=== PATIENT | female | born 1945 | race American Indian/Alaskan Native ===

== ENCOUNTER 2017-06-06 17:35 | Emergency (ER) | payer MEDICARE ==
[2017-06-06 19:11] LABS: Basophils # (Auto) 0.1 K/mm3 (0.0-0.1); Eosinophils % (Auto) 0.7 % (0.0-4.3); Hematocrit 31.7 % (30.3-42.9); Hemoglobin 10.6 gm/dl (10.1-14.3); Lymphocytes # (Auto) 0.8 K/mm3 (1.2-5.4); Lymphocytes % (Auto) 16.3 % (13.4-35.0); Mean Corpuscular HGB Conc 33 % (30-34); Mean Corpuscular Hemoglobin 29 pg (28-32); Mean Corpuscular Volume 86 fl (79-97); Monocytes # (Auto) 0.4 K/mm3 (0.0-0.8); Monocytes % (Auto) 7.6 % (0.0-7.3); Platelet Count 209 K/mm3 (140-440); Red Blood Count 3.71 M/mm3 (3.65-5.03); Red Cell Distribution Width 13.3 % (13.2-15.2)
[2017-06-06 19:21] LABS: INR 0.96 (0.87-1.13); Partial Thromboplastin Time 29.1 Sec. (24.2-36.6)
--- NOTE | 2017-06-06 19:27 | Emergency Department Report ---
ED Female HPI - General Chief complaint: Vaginal Bleeding Stated complaint: VAGINAL HEMORRHAGE Time Seen by Provider: 06/06/17 18:32 Source: EMS Mode of arrival: Stretcher Limitations: No Limitations - History of Present Illness Initial comments: 72 yo female with a past medical history of osteoarthritis presents to the hospital with complaints that she be started one hour prior to arrival. Patient went to the bathroom to have a bowel movement. She has some suprapubic pressure. After straining she noticed a gush of blood from her vagina with clots. Patient denies rectal bleeding. No complaints of pain at this time. Patient has been postmenopausal since the age of 51 and has not seen a VIRTUAL OFFICE ASSISTANT since 1982. Patient presents with elevated blood pressure and states that it increases when she is upset or nervous she denies a history of hypertension. Patient takes multivitamins and Aleve for her arthritis. Pt states she eats multiple bananas today - Related Data Previous Rx's Medication Instructions Recorded Last Taken Type Ferrous Sulfate 325 mg PO DAILY #30 tablet. 06/07/17 Unknown Rx Ibuprofen [Motrin] 800 mg PO Q8HR PRN #30 tablet 06/07/17 Unknown Rx Metformin HCl 500 mg PO BID #60 tablet 06/07/17 Unknown Rx Allergies Allergy/AdvReac Type Severity Reaction Status Date / Time No Known Allergies Allergy Unverified 06/06/17 18:35 ED Review of Systems ROS: Stated complaint: VAGINAL HEMORRHAGE Other details as noted in HPI Comment: All other systems reviewed and negative Other: Constitutional: No fevers chills Eyes: No eye pain visual changes ENT: No ear pain or throat pain Neck: Denies pain Respiratory: Denies cough wheezing shortness of breath Cardiovascular: Denies chest pain, palpitations, syncope GI: Denies abdominal pain, nausea, vomiting, diarrhea : Denies dysuria Musculoskeletal: Denies back pain Skin: Denies rash, lesions, erythema Neurologic: Denies headache, numbness, weakness Psychiatric: Denies suicidal ideation, hallucinations ED Past Medical Hx - Past Medical History Hx Arthritis: Yes (osteoarthritis) - Social History Smoking Status: Never Smoker - Medications Home Medications: Home Medications Medication Instructions Recorded Confirmed Last Taken Type Ferrous Sulfate 325 mg PO DAILY #30 tablet. 06/07/17 Unknown Rx Ibuprofen [Motrin] 800 mg PO Q8HR PRN #30 tablet 06/07/17 Unknown Rx Metformin HCl 500 mg PO BID #60 tablet 06/07/17 Unknown Rx ED Physical Exam - General Limitations: No Limitations - Other Other exam information: General: No limitations, patient is alert in no acute distress Head exam: Atraumatic, normocephalic Eyes exam: Normal appearance, pupils equal reactive to light, extraocular movements intact ENT: Moist mucous membrane, normal oropharynx Neck exam: Normal inspection, full range of motion, no meningismus nontender Respiratory exam: Clear to auscultation bilateral, no wheezes, rales, crackles Cardiovascular: Normal rate and rhythm, normal heart sounds Abdomen: Soft, nondistended, and nontender, with normal bowel sounds, no rebound, or guarding , no external abnormality , positive vaginal bleeding Extremity: Full range of motion normal inspection no deformity Back: Normal Inspection, full range of motion, no tenderness Neurologic: Alert, oriented x3, cranial nerves intact, no motor or sensory deficit Psychiatric: normal affect, normal mood Skin: Warm, dry, intact ED Course Vital Signs 06/06/17 06/06/17 06/06/17 18:33 19:29 19:30 Temperature 99 F Pulse Rate 82 Respiratory 18 Rate Blood Pressure 178/76 Blood Pressure 187/64 [Right] O2 Sat by Pulse 94 95 96 Oximetry 06/06/17 06/06/17 06/06/17 19:32 19:34 19:36 Temperature Pulse Rate 72 73 77 Respiratory 20 23 12 Rate Blood Pressure 178/76 178/76 178/76 Blood Pressure [Right] O2 Sat by Pulse 98 98 96 Oximetry 06/06/17 06/06/17 06/06/17 19:38 20:20 20:22 Temperature Pulse Rate 75 94 H 100 H Respiratory 13 29 H 16 Rate Blood Pressure 178/76 178/76 178/76 Blood Pressure [Right] O2 Sat by Pulse 94 96 Oximetry 06/06/17 06/06/17 06/06/17 20:24 20:26 20:28 Temperature Pulse Rate 92 H 97 H 95 H Respiratory 18 17 15 Rate Blood Pressure 178/76 178/76 178/76 Blood Pressure [Right] O2 Sat by Pulse Oximetry 06/06/17 06/06/17 06/06/17 20:30 20:32 20:34 Temperature Pulse Rate 99 H 83 100 H Respiratory 22 17 12 Rate Blood Pressure 148/61 148/61 148/61 Blood Pressure [Right] O2 Sat by Pulse 97 97 96 Oximetry 06/06/17 06/06/17 06/06/17 20:36 20:38 20:40 Temperature Pulse Rate 96 H 83 92 H Respiratory 15 14 15 Rate Blood Pressure 148/61 148/61 148/61 Blood Pressure [Right] O2 Sat by Pulse 96 96 96 Oximetry 06/06/17 06/06/17 06/06/17 20:42 20:44 20:46 Temperature Pulse Rate 93 H 79 79 Respiratory 19 18 14 Rate Blood Pressure 148/61 148/61 148/61 Blood Pressure [Right] O2 Sat by Pulse 95 94 96 Oximetry 06/06/17 06/06/17 06/06/17 20:48 20:50 20:52 Temperature Pulse Rate 93 H 80 77 Respiratory 10 L 21 13 Rate Blood Pressure 178/76 178/76 178/76 Blood Pressure [Right] O2 Sat by Pulse 97 93 97 Oximetry 06/06/17 06/06/17 06/06/17 20:54 20:56 20:58 Temperature Pulse Rate 94 H 92 H 97 H Respiratory 22 20 19 Rate Blood Pressure 178/76 178/76 178/76 Blood Pressure [Right] O2 Sat by Pulse 94 94 94 Oximetry 06/06/17 06/06/17 06/06/17 21:00 21:02 21:04 Temperature Pulse Rate 93 H 82 79 Respiratory 14 19 22 Rate Blood Pressure 155/64 155/64 155/64 Blood Pressure [Right] O2 Sat by Pulse 95 93 92 Oximetry 06/06/17 06/06/17 06/06/17 21:06 21:08 21:10 Temperature Pulse Rate 79 80 89 Respiratory 20 10 L 17 Rate Blood Pressure 155/64 155/64 155/64 Blood Pressure [Right] O2 Sat by Pulse 94 97 97 Oximetry 06/06/17 06/06/17 06/06/17 21:12 21:14 21:16 Temperature Pulse Rate 95 H 80 76 Respiratory 10 L 15 17 Rate Blood Pressure 155/64 155/64 155/64 Blood Pressure [Right] O2 Sat by Pulse 96 97 95 Oximetry 06/06/17 06/06/17 06/06/17 21:18 21:20 21:22 Temperature Pulse Rate 79 78 79 Respiratory 11 L 14 11 L Rate Blood Pressure 155/64 155/64 155/64 Blood Pressure [Right] O2 Sat by Pulse 97 96 97 Oximetry 06/06/17 06/06/17 06/06/17 21:24 21:26 21:28 Temperature Pulse Rate 81 76 76 Respiratory 11 L 15 16 Rate Blood Pressure 155/64 155/64 155/64 Blood Pressure [Right] O2 Sat by Pulse 96 96 97 Oximetry 06/06/17 06/06/17 06/06/17 21:30 21:32 21:34 Temperature Pulse Rate 77 78 76 Respiratory 13 13 11 L Rate Blood Pressure 155/64 155/64 155/64 Blood Pressure [Right] O2 Sat by Pulse 96 97 96 Oximetry 06/06/17 06/06/17 06/06/17 21:36 21:38 21:40 Temperature Pulse Rate 75 78 75 Respiratory 8 L 12 11 L Rate Blood Pressure 155/64 155/64 155/64 Blood Pressure [Right] O2 Sat by Pulse 96 97 97 Oximetry 06/06/17 06/06/17 06/06/17 21:42 21:44 21:45 Temperature Pulse Rate 75 80 75 Respiratory 18 16 18 Rate Blood Pressure 155/64 155/64 155/64 Blood Pressure [Right] O2 Sat by Pulse 96 97 96 Oximetry 06/06/17 06/06/17 06/06/17 21:46 21:48 21:49 Temperature Pulse Rate 75 75 74 Respiratory 16 18 17 Rate Blood Pressure 155/64 155/64 155/64 Blood Pressure [Right] O2 Sat by Pulse 96 95 97 Oximetry 06/06/17 06/06/17 06/06/17 21:50 21:52 21:54 Temperature Pulse Rate 72 77 77 Respiratory 18 15 18 Rate Blood Pressure 155/64 155/64 155/64 Blood Pressure [Right] O2 Sat by Pulse 97 96 96 Oximetry 06/06/17 06/06/17 06/06/17 21:56 21:58 22:00 Temperature Pulse Rate 90 77 86 Respiratory 15 16 17 Rate Blood Pressure 155/64 155/64 158/70 Blood Pressure [Right] O2 Sat by Pulse 97 96 95 Oximetry 06/06/17 06/06/17 06/06/17 22:02 22:03 22:05 Temperature Pulse Rate 74 80 77 Respiratory 12 20 23 Rate Blood Pressure 158/70 158/70 158/70 Blood Pressure [Right] O2 Sat by Pulse 97 95 95 Oximetry 06/06/17 06/06/17 06/06/17 22:08 22:09 22:10 Temperature Pulse Rate 73 79 81 Respiratory 18 22 25 H Rate Blood Pressure 158/70 158/70 158/70 Blood Pressure [Right] O2 Sat by Pulse 97 96 98 Oximetry 06/06/17 06/06/17 06/06/17 22:11 22:30 22:31 Temperature Pulse Rate 83 95 H 84 Respiratory 22 26 H 25 H Rate Blood Pressure 158/70 158/70 158/70 Blood Pressure [Right] O2 Sat by Pulse 98 Oximetry 06/06/17 06/06/17 06/06/17 22:33 22:35 22:37 Temperature Pulse Rate 94 H 78 89 Respiratory 21 36 H 30 H Rate Blood Pressure 158/70 158/70 158/70 Blood Pressure [Right] O2 Sat by Pulse 97 97 97 Oximetry 06/06/17 06/06/17 06/06/17 22:39 22:41 22:43 Temperature Pulse Rate 77 87 77 Respiratory 19 20 24 Rate Blood Pressure 158/70 158/70 158/70 Blood Pressure [Right] O2 Sat by Pulse 98 96 97 Oximetry 06/06/17 06/06/17 06/06/17 22:45 22:47 22:49 Temperature Pulse Rate 79 83 87 Respiratory 16 14 14 Rate Blood Pressure 158/70 158/70 158/70 Blood Pressure [Right] O2 Sat by Pulse 99 97 98 Oximetry 06/06/17 06/06/17 06/06/17 22:51 22:53 22:55 Temperature Pulse Rate 77 84 81 Respiratory 14 12 16 Rate Blood Pressure 158/70 158/70 158/70 Blood Pressure [Right] O2 Sat by Pulse 97 97 97 Oximetry 06/06/17 06/06/17 06/06/17 22:57 22:59 23:00 Temperature Pulse Rate 80 97 H 83 Respiratory 12 16 13 Rate Blood Pressure 158/70 158/70 145/58 Blood Pressure [Right] O2 Sat by Pulse 97 95 94 Oximetry 06/06/17 06/06/17 06/06/17 23:01 23:03 23:05 Temperature Pulse Rate 84 80 107 H Respiratory 16 17 15 Rate Blood Pressure 158/70 158/70 158/70 Blood Pressure [Right] O2 Sat by Pulse 97 96 96 Oximetry 06/06/17 06/06/17 06/06/17 23:07 23:09 23:11 Temperature Pulse Rate 82 87 84 Respiratory 19 19 18 Rate Blood Pressure 158/70 158/70 158/70 Blood Pressure [Right] O2 Sat by Pulse 97 96 96 Oximetry 06/06/17 06/06/17 06/06/17 23:13 23:15 23:17 Temperature Pulse Rate 91 H 85 94 H Respiratory 13 17 22 Rate Blood Pressure 158/70 158/70 158/70 Blood Pressure [Right] O2 Sat by Pulse 97 97 95 Oximetry 06/06/17 06/06/17 06/06/17 23:19 23:21 23:23 Temperature Pulse Rate 93 H 85 84 Respiratory 15 12 14 Rate Blood Pressure 158/70 158/70 158/70 Blood Pressure [Right] O2 Sat by Pulse 97 98 98 Oximetry 06/06/17 06/06/17 06/06/17 23:25 23:27 23:29 Temperature Pulse Rate 82 85 84 Respiratory 17 13 15 Rate Blood Pressure 158/70 158/70 158/70 Blood Pressure [Right] O2 Sat by Pulse 98 98 97 Oximetry 06/06/17 06/06/17 06/06/17 23:31 23:33 23:35 Temperature Pulse Rate 83 82 84 Respiratory 19 22 21 Rate Blood Pressure 158/70 158/70 158/70 Blood Pressure [Right] O2 Sat by Pulse 96 98 96 Oximetry 06/06/17 06/06/17 06/06/17 23:37 23:39 23:41 Temperature Pulse Rate 82 80 82 Respiratory 20 22 23 Rate Blood Pressure 158/70 158/70 158/70 Blood Pressure [Right] O2 Sat by Pulse 98 96 95 Oximetry 06/06/17 06/06/17 06/06/17 23:43 23:45 23:47 Temperature Pulse Rate 82 80 80 Respiratory 19 20 18 Rate Blood Pressure 158/70 158/70 158/70 Blood Pressure [Right] O2 Sat by Pulse 96 97 95 Oximetry 06/06/17 06/06/17 06/06/17 23:49 23:51 23:53 Temperature Pulse Rate 79 79 76 Respiratory 20 19 12 Rate Blood Pressure 158/70 158/70 158/70 Blood Pressure [Right] O2 Sat by Pulse 95 95 96 Oximetry 06/06/17 06/06/17 06/06/17 23:55 23:56 23:57 Temperature Pulse Rate 94 H 86 88 Respiratory 19 17 20 Rate Blood Pressure 158/70 158/70 158/70 Blood Pressure [Right] O2 Sat by Pulse Oximetry - Consultations Consultation #1: 06/06/17 22:46 Case discussed with on-call VIRTUAL OFFICE ASSISTANT doctor [facility]. Informed of CBC, symptoms, and ultrasound results. We'll refer patient to the office for follow-up and further evaluation. ED Medical Decision Making - Lab Data Result diagrams: 06/06/17 18:48 06/06/17 18:48 Lab Results 06/06/17 06/06/17 06/06/17 Range/Units 18:48 18:48 18:48 WBC 5.2 (4.5-11.0) K/mm3 RBC 3.71 (3.65-5.03) M/mm3 Hgb 10.6 (10.1-14.3) gm/dl Hct 31.7 (30.3-42.9) % MCV 86 (79-97) fl MCH 29 (28-32) pg MCHC 33 (30-34) % RDW 13.3 (13.2-15.2) % Plt Count 209 (140-440) K/mm3 Lymph % (Auto) 16.3 (13.4-35.0) % [place] % (Auto) 7.6 H (0.0-7.3) % Eos % (Auto) 0.7 (0.0-4.3) % Baso % (Auto) 1.0 (0.0-1.8) % Lymph # 0.8 L (1.2-5.4) K/mm3 [place] # 0.4 (0.0-0.8) K/mm3 Eos # 0.0 (0.0-0.4) K/mm3 Baso # 0.1 (0.0-0.1) K/mm3 Seg Neutrophils % 74.4 H (40.0-70.0) % Seg Neutrophils # 3.8 (1.8-7.7) K/mm3 PT 13.3 (12.2-14.9) Sec. INR 0.96 (0.87-1.13) APTT 29.1 (24.2-36.6) Sec. Sodium 132 L (137-145) mmol/L Potassium 5.4 H (3.6-5.0) mmol/L Chloride 93.8 L (98-107) mmol/L Carbon Dioxide 26 (22-30) mmol/L Anion Gap 18 mmol/L BUN 20 H (7-17) mg/dL Creatinine 1.3 H (0.7-1.2) mg/dL Estimated GFR 49 ml/min BUN/Creatinine Ratio 15 % Glucose 335 H (65-100) mg/dL POC Glucose (70-105) Hemoglobin A1c (4-6) % Calcium 9.2 (8.4-10.2) mg/dL Total Bilirubin 0.60 (0.1-1.2) mg/dL AST 34 (5-40) units/L ALT 22 (7-56) units/L Alkaline Phosphatase 104 (35-129) units/L Total Protein 6.4 (6.3-8.2) g/dL Albumin 3.5 L (3.9-5) g/dL Albumin/Globulin Ratio 1.2 % Blood Type Antibody Screen 06/06/17 06/06/17 06/06/17 Range/Units 18:48 18:48 22:38 WBC (4.5-11.0) K/mm3 RBC (3.65-5.03) M/mm3 Hgb (10.1-14.3) gm/dl Hct (30.3-42.9) % MCV (79-97) fl MCH (28-32) pg MCHC (30-34) % RDW (13.2-15.2) % Plt Count (140-440) K/mm3 Lymph % (Auto) (13.4-35.0) % [place] % (Auto) (0.0-7.3) % Eos % (Auto) (0.0-4.3) % Baso % (Auto) (0.0-1.8) % Lymph # (1.2-5.4) K/mm3 [place] # (0.0-0.8) K/mm3 Eos # (0.0-0.4) K/mm3 Baso # (0.0-0.1) K/mm3 Seg Neutrophils % (40.0-70.0) % Seg Neutrophils # (1.8-7.7) K/mm3 PT (12.2-14.9) Sec. INR (0.87-1.13) APTT (24.2-36.6) Sec. Sodium (137-145) mmol/L Potassium (3.6-5.0) mmol/L Chloride (98-107) mmol/L Carbon Dioxide (22-30) mmol/L Anion Gap mmol/L BUN (7-17) mg/dL Creatinine (0.7-1.2) mg/dL Estimated GFR ml/min BUN/Creatinine Ratio % Glucose (65-100) mg/dL POC Glucose 305 H (70-105) Hemoglobin A1c 9.5 H (4-6) % Calcium (8.4-10.2) mg/dL Total Bilirubin (0.1-1.2) mg/dL AST (5-40) units/L ALT (7-56) units/L Alkaline Phosphatase (35-129) units/L Total Protein (6.3-8.2) g/dL Albumin (3.9-5) g/dL Albumin/Globulin Ratio % Blood Type A POSITIVE Antibody Screen Negative 06/07/17 Range/Units 00:01 WBC (4.5-11.0) K/mm3 RBC (3.65-5.03) M/mm3 Hgb (10.1-14.3) gm/dl Hct (30.3-42.9) % MCV (79-97) fl MCH (28-32) pg MCHC (30-34) % RDW (13.2-15.2) % Plt Count (140-440) K/mm3 Lymph % (Auto) (13.4-35.0) % [place] % (Auto) (0.0-7.3) % Eos % (Auto) (0.0-4.3) % Baso % (Auto) (0.0-1.8) % Lymph # (1.2-5.4) K/mm3 [place] # (0.0-0.8) K/mm3 Eos # (0.0-0.4) K/mm3 Baso # (0.0-0.1) K/mm3 Seg Neutrophils % (40.0-70.0) % Seg Neutrophils # (1.8-7.7) K/mm3 PT (12.2-14.9) Sec. INR (0.87-1.13) APTT (24.2-36.6) Sec. Sodium (137-145) mmol/L Potassium (3.6-5.0) mmol/L Chloride (98-107) mmol/L Carbon Dioxide (22-30) mmol/L Anion Gap mmol/L BUN (7-17) mg/dL Creatinine (0.7-1.2) mg/dL Estimated GFR ml/min BUN/Creatinine Ratio % Glucose (65-100) mg/dL POC Glucose 117 H (70-105) Hemoglobin A1c (4-6) % Calcium (8.4-10.2) mg/dL Total Bilirubin (0.1-1.2) mg/dL AST (5-40) units/L ALT (7-56) units/L Alkaline Phosphatase (35-129) units/L Total Protein (6.3-8.2) g/dL Albumin (3.9-5) g/dL Albumin/Globulin Ratio % Blood Type Antibody Screen - Radiology Data Radiology results: report reviewed transvag/pelvic US: possible small uterine leiomyoma, question thickened endometrium - Medical Decision Making Patient has new onset postmenopausal vaginal bleeding was stable H&H and normal vital signs. Ultrasound findings reviewed. Case discussed with [facility]. Follow-up will be encouraged. Patient incidentally noted to have elevated glucose and elevated hemoglobin A1c. Patient is a new onset diabetic. Sugar reduced with insulin here. Metformin started. 1 L nS given Lasix 20mg IV given for mild hyperkalemia - Differential Diagnosis postmenopausal bleeding, cancer, coagulopathy, rectal bleeding Critical Care Time: No Critical care attestation.: If time is entered above; I have spent that time in minutes in the direct care of this critically ill patient, excluding procedure time. ED Disposition Clinical Impression: Postmenopausal vaginal bleeding, Diabetes mellitus, new onset, Hyperkalemia, Uterine fibroid Disposition: DC-01 TO HOME OR SELFCARE Is pt being admited?: No Does the pt Need Aspirin: No Condition: Stable Instructions: Menorrhagia (ED), Diabetes Mellitus Type 2 in Adults (ED), Uterine Fibroids (ED) Additional Instructions: Decrease your banana intake because it is causing your potassium to be elevated. You are a diabetic. Take the diabetic medication as prescribed. Iron tablets have also been prescribed while you are having vaginal bleeding. Iron tablets may cause constipation and therefore, take stool softeners if needed. Is very important that you follow with primary care doctor for further management of a new onset diabetes and a VIRTUAL OFFICE ASSISTANT doctor for further management of your postmenopausal bleeding to rule out cancer. Prescriptions: Ferrous Sulfate 325 mg PO DAILY #30 tablet. Ibuprofen [Motrin] 800 mg PO Q8HR PRN #30 tablet PRN Reason: Pain Metformin HCl 500 mg PO BID #60 tablet Referrals: GLYNN CARD MD [Staff Physician] - 3-5 Days (primary care doctor) KELLI US MD [Staff Physician] - 3-5 Days (VIRTUAL OFFICE ASSISTANT doctor ) Time of Disposition: 00:35
[2017-06-06 19:28] LABS: Albumin 3.5 g/dL (3.9-5); Calcium 9.2 mg/dL (8.4-10.2)
[2017-06-06] MEDS ORDERED: NACL 0.9% 1000 ML 1,000 ML IV ONE (20:47)
[2017-06-06] MEDS ORDERED: LASIX IV ONE (20:48)
--- NOTE | 2017-06-06 21:58 | Ultrasound Report ---
FINAL REPORT PROCEDURE: Transabdominal pelvic ultrasound. TECHNIQUE: Real-time transabdominal sonography in multiple planes of pelvis was performed with image documentation. This examination was performed without Doppler. Vascular abnormalities, including ovarian torsion, will not be detectable without Doppler evaluation. CPT 34613 HISTORY: Postmenopausal bleeding. COMPARISON: No prior studies are available for comparison. FINDINGS: Image quality is limited because the patient's bladder was not fully distended. The uterus measures 9.9 centimeters x 5.0 centimeters x 6.8 centimeters. There is a hypoechoic area in the uterine fundus measuring 2.5 centimeters in maximum dimension. This may represent a leiomyoma. The endometrial echo complex is suboptimally defined. Neither ovary is identified. IMPRESSION: Possible uterine leiomyoma.
--- NOTE | 2017-06-06 22:00 | Ultrasound Report ---
FINAL REPORT PROCEDURE: Transvaginal pelvic ultrasound. TECHNIQUE: Real-time transvaginal sonography in multiple planes of the pelvis was performed with image documentation. This examination was performed without Doppler. Vascular abnormalities, including ovarian torsion, will not be detectable without Doppler evaluation. CPT 30968 HISTORY: Postmenopausal bleeding. COMPARISON: No prior studies are available for comparison. FINDINGS: The uterus appears normal in size. There is a faint focal area of slightly diminished attenuation within the anterior portion of the uterine body. This measures 2.5 centimeters in maximum dimension. It may represent a leiomyoma. The endometrial echo complex is not sharply defined. It may be thickened measuring up to 1.6 centimeters. The cervix is unremarkable. Neither ovary is identified. IMPRESSION: Possible small uterine leiomyoma. Question thickened endometrium.
[2017-06-06 22:49] VITALS: BP 158/70
== END 2017-06-07 01:28 | disposition home or self-care (01) ==
LOC: ED 17:35
DX: N93.9 Abnormal uterine and vaginal bleeding, unspecified (principal); E11.9 Type 2 diabetes mellitus without complications; E87.5 Hyperkalemia; D25.9 Leiomyoma of uterus, unspecified; M19.90 Unspecified osteoarthritis, unspecified site
CPT/HCPCS: 36415; 76830; 76856; 80053; 82962; 83036; 85025; 85610; 85730; 86850; 86900; 86901; 96361; 96374; 96375; 99285; J1940; J7030; J1815

== ENCOUNTER 2017-06-09 14:06 | Emergency (ER) | payer MEDICARE ==
[2017-06-09 16:51] LABS: Basophils # (Auto) 0.1 K/mm3 (0.0-0.1); Basophils % (Auto) 0.6 % (0.0-1.8); Eosinophils % (Auto) 0.3 % (0.0-4.3); Hematocrit 29.5 % (30.3-42.9); Hemoglobin 9.7 gm/dl (10.1-14.3); Lymphocytes # (Auto) 1.4 K/mm3 (1.2-5.4); Lymphocytes % (Auto) 16.7 % (13.4-35.0); Mean Corpuscular HGB Conc 33 % (30-34); Mean Corpuscular Hemoglobin 28 pg (28-32); Mean Corpuscular Volume 85 fl (79-97); Monocytes # (Auto) 0.4 K/mm3 (0.0-0.8); Monocytes % (Auto) 5.3 % (0.0-7.3); Platelet Count 227 K/mm3 (140-440); Red Blood Count 3.48 M/mm3 (3.65-5.03); Red Cell Distribution Width 13.2 % (13.2-15.2)
--- NOTE | 2017-06-09 17:16 | Emergency Department Report ---
ED Female HPI - General Chief complaint: Vaginal Bleeding Stated complaint: VAGINAL HEMORRHAGE Time Seen by Provider: 06/09/17 16:09 Source: EMS Mode of arrival: Ambulatory Limitations: No Limitations - History of Present Illness Initial comments: Patient was seen here 3 days ago for same. US performed with diagnosis of Leiomyoma. Patient here today because of a lot of bleeding. She says she will be contacting T[employer]ing Machine [employer] tomorrow. She has no other complaints. - Related Data Previous Rx's Medication Instructions Recorded Last Taken Type Ferrous Sulfate 325 mg PO DAILY #30 tablet. 06/07/17 Unknown Rx Ibuprofen [Motrin] 800 mg PO Q8HR PRN #30 tablet 06/07/17 Unknown Rx Metformin HCl 500 mg PO BID #60 tablet 06/07/17 Unknown Rx Allergies Allergy/AdvReac Type Severity Reaction Status Date / Time No Known Allergies Allergy Verified 06/09/17 15:28 ED Review of Systems ROS: Stated complaint: VAGINAL HEMORRHAGE Other details as noted in HPI Comment: All other systems reviewed and negative Constitutional: denies: chills, fever Eyes: denies: eye pain, eye discharge, vision change ENT: denies: ear pain, throat pain Respiratory: denies: cough, shortness of breath, wheezing Cardiovascular: denies: chest pain, palpitations Endocrine: no symptoms reported Gastrointestinal: denies: abdominal pain, nausea, diarrhea Genitourinary: denies: urgency, dysuria, discharge Musculoskeletal: denies: back pain, joint swelling, arthralgia Skin: denies: rash, lesions Neurological: denies: headache, weakness, paresthesias Psychiatric: denies: anxiety, depression Hematological/Lymphatic: denies: easy bleeding, easy bruising ED Past Medical Hx - Past Medical History Previous Medical History?: Yes Hx Hypertension: No Hx CVA: No Hx Heart Attack/AMI: No Hx Congestive Heart Failure: No Hx Diabetes: No Hx Deep Vein Thrombosis: No Hx Pulmonary Embolism: No Hx GERD: No Hx Liver Disease: No Hx Renal Disease: No Hx of Cancer: No Hx Sickle Cell Disease: No Hx Arthritis: Yes (osteoarthritis) Hx Headaches / Migraines: No Hx Seizures: No Hx Kidney Stones: No Hx Psychiatric Treatment: No Hx Asthma: No Hx COPD: No Hx Tuberculosis: No Hx Dementia: No Hx HIV: No - Surgical History Past Surgical History?: No Hx Coronary Stent: No Hx Open Heart Surgery: No Hx Pacemaker: No Hx Internal Defibrillator: No Hx Cholecystectomy: No Hx Appendectomy: No Hx Breast Surgery: No - Social History Smoking Status: Never Smoker Substance Use Type: None - Medications Home Medications: Home Medications Medication Instructions Recorded Confirmed Last Taken Type Ferrous Sulfate 325 mg PO DAILY #30 tablet. 06/07/17 Unknown Rx Ibuprofen [Motrin] 800 mg PO Q8HR PRN #30 tablet 06/07/17 Unknown Rx Metformin HCl 500 mg PO BID #60 tablet 06/07/17 Unknown Rx ED Physical Exam - General Limitations: No Limitations General appearance: alert, in no apparent distress - Head Head exam: Present: atraumatic, normocephalic - Eye Eye exam: Present: normal appearance - ENT ENT exam: Present: mucous membranes moist - Neck Neck exam: Present: normal inspection, full ROM - Respiratory Respiratory exam: Present: normal lung sounds bilaterally. Absent: respiratory distress - Cardiovascular Cardiovascular Exam: Present: regular rate, normal rhythm. Absent: systolic murmur, diastolic murmur, rubs, gallop - GI/Abdominal GI/Abdominal exam: Present: soft, normal bowel sounds. Absent: tenderness - Extremities Exam Extremities exam: Present: normal inspection, full ROM - Back Exam Back exam: Present: normal inspection - Neurological Exam Neurological exam: Present: alert, oriented X3 - Psychiatric Psychiatric exam: Present: normal affect, normal mood - Skin Skin exam: Present: warm, dry, intact, normal color. Absent: rash ED Course Vital Signs 06/09/17 15:23 Temperature 98.4 F Pulse Rate 80 Respiratory 18 Rate Blood Pressure 146/54 Blood Pressure 146/54 [Right] O2 Sat by Pulse 99 Oximetry - Reevaluation(s) Reevaluation #1: 06/09/17 17:21 Patient is stable and resting in bed. ED Medical Decision Making - Lab Data Result diagrams: 06/09/17 16:27 Critical Care Time: No Critical care attestation.: If time is entered above; I have spent that time in minutes in the direct care of this critically ill patient, excluding procedure time. ED Disposition Clinical Impression: Postmenopausal vaginal bleeding, Uterine fibroid, Anemia Disposition: - TO HOME OR SELFCARE Is pt being admited?: No Does the pt Need Aspirin: No Condition: Stable Referrals: OMI BUTLER MD [Primary Care Provider] - 3-5 Days
[2017-06-09 18:25] VITALS: BP 124/82
== END 2017-06-09 18:25 | disposition home or self-care (01) ==
LOC: ED 14:06
DX: N93.8 Other specified abnormal uterine and vaginal bleeding (principal); D25.9 Leiomyoma of uterus, unspecified; D64.9 Anemia, unspecified; M19.90 Unspecified osteoarthritis, unspecified site
CPT/HCPCS: 36415; 84702; 85025; 86850; 86900; 86901; 99283